=== PATIENT | female | born 1950 | race Caucasian/White ===

== ENCOUNTER → 2016-09-13 19:07 | Outpatient (CLI) | payer MEDICARE, MEDICAID ==
[2013-12-31 18:27] VITALS: BMI 20.1
[~2016-09-13 19:07] MED LIST: ARTHROTEC EC 71 EACH PO; HYDROCODONE-APA1 TAB PO; LEXAPRO10 MG PO; LISINOPRIL5 MG PO; SYNTHROID100 MCG PO; VITAMIN D2000 UNIT PO; ZANAFLEX4 MG PO; ZOCOR10 MG PO
== END | disposition home or self-care (01) ==
LOC: D.MAMMO 10:00
DX: N64.4 Mastodynia (principal)

== ENCOUNTER → 2017-09-24 17:14 | Outpatient (CLI) | payer OTHER ==
[2013-12-31 18:27] VITALS: BMI 20.1
== END | disposition home or self-care (01) ==
LOC: D.MAMMO 11:15
DX: Z12.31 Encounter for screening mammogram for malignant neoplasm of breast (principal)

== ENCOUNTER → 2018-09-26 23:30 | Outpatient (CLI) | payer OTHER ==
[2013-12-31 18:27] VITALS: BMI 20.1
== END | disposition home or self-care (01) ==
LOC: D.MAMMO 09:30
PROVIDERS: ATTEND Family Medicine
DX: Z12.31 Encounter for screening mammogram for malignant neoplasm of breast (principal)

== ENCOUNTER 2019-07-11 13:41 | Emergency (ER) | payer OTHER ==
[~2019-07-11] VITALS: Ht 157.5 cm; Wt 50.0 kg
[2019-07-11 13:47] VITALS: Ht 157.5 cm; Wt 50.0 kg
[2019-07-11] MEDS ORDERED: IBUPROFEN800 MG PO (14:51)
[2019-07-11] MEDS ORDERED: CYCLOBENZAPRINE10 MG PO (14:51)
[2019-07-11] MEDS ORDERED: ACETAMINOPHEN500 M1 PO (14:51)
[2019-07-11 15:07] VITALS: BP 134/65
== END 2019-07-11 15:07 | disposition home or self-care (01) ==
LOC: D.ER 13:41
DX: R51 Headache (principal); M79.18 Myalgia, other site; M54.2 Cervicalgia; S00.03XA Contusion of scalp, initial encounter; W19.XXXA Unspecified fall, initial encounter; Y93.9 Activity, unspecified; Y92.9 Unspecified place or not applicable; I10 Essential (primary) hypertension; E07.9 Disorder of thyroid, unspecified

== ENCOUNTER → 2020-10-26 17:36 | Outpatient (CLI) | payer OTHER ==
[2020-09-15 11:28] VITALS: BMI 22.0
[~2020-10-26 17:36] MED LIST changes: +ACETAMINOPHEN500 M1 PO; +CYCLOBENZAPRINE10 MG PO; +DONEPEZIL HCL10 MG PO; +IBUPROFEN800 MG PO; +LISINOPRIL-HCT1 EAC4 PO; +PEPCID40 MG PO; +PRAVACHOL40 MG PO; +TRAZODONE HCL150 MG PO; +VOLTAREN75 MG PO
[2020-10-26 18:00] LABS: BASOPHILS 0.3 % (0-2); EOSINOPHILS 2.7 % (0-7); HEMATOCRIT 37.4 % (36.0-48.0); IMMATURE GRANULOCYTES 0.2 % (0-5); LYMPHOCYTE ABS# 0.97 10x3/uL (1.18-3.74); LYMPHOCYTES 15.6 % (15-50); MCH 29.9 pg (26.0-34.0); MCHC 32.1 g/dL (31.0-37.0); MCV 93.3 fL (80.0-100.0); MEAN PLATELET VOLUME 10.6 fL (7.4-10.4); MONOCYTES 6.1 % (2-11); NEUTROPHIL ABS# 4.67 10x3/uL (1.56-6.13); NEUTROPHILS 75.1 % (40-80); RBC 4.01 10x6/uL (4.00-5.40); RDW 12.5 % (11.5-14.5); WBC 6.2 10x3/uL (4.8-10.8)
[2020-10-26 18:06] LABS: PLATELET COUNT 347 10x3/uL (130-400)
[2020-10-26 18:41] LABS: CALCIUM 9.6 mg/dL (8.5-10.1)
[2020-10-26 19:13] LABS: ERYTHROCYTE SEDIMENTATION RATE 26 mm/hr (0-30)
== END | disposition home or self-care (01) ==
LOC: D.LABREF 17:36
PROVIDERS: ATTEND Clinical Nurse Specialist Family Health
DX: S32.9XXA Fracture of unspecified parts of lumbosacral spine and pelvis, initial encounter for closed fracture (principal)